=== PATIENT | male | born 1995 | race Asian ===

== ENCOUNTER 2017-08-11 11:40 | Emergency (ER) | payer SELFPAY ==
[~2017-08-11] VITALS: Ht 170.2 cm; Wt 63.6 kg
[2017-08-11 12:35] VITALS: BP 118/71
== END 2017-08-11 12:41 | disposition home or self-care (01) ==
LOC: EMS 11:41
DX: Z04.1 Encounter for examination and observation following transport accident (principal); V89.2XXA Person injured in unspecified motor-vehicle accident, traffic, initial encounter; Y93.89 Activity, other specified; Y92.89 Other specified places as the place of occurrence of the external cause; Y99.8 Other external cause status
CPT/HCPCS: 99281; 99283